=== PATIENT | male | born 1950 | race Caucasian/White ===

== ENCOUNTER 2018-05-07 08:09 | Emergency (ER) | payer BC ==
[~2018-05-07] VITALS: Ht 180.3 cm; Wt 117.9 kg
[2018-05-07] MEDS ORDERED: LISINOPRIL40 MG PO (08:21)
[2018-05-07] MEDS ORDERED: NORCO 5-325 TA1 EACH PO (09:18)
[2018-05-07] MEDS ORDERED: ZOFRAN ODT4 MG PO (09:18)
[2018-05-07 09:29] VITALS: BP 153/82
== END 2018-05-07 09:29 | disposition home or self-care (01) ==
LOC: ER 08:09
DX: S00.03XA Contusion of scalp, initial encounter (principal); Z88.0 Allergy status to penicillin; W01.0XXA Fall on same level from slipping, tripping and stumbling without subsequent striking against object, initial encounter; Y93.89 Activity, other specified; Y92.89 Other specified places as the place of occurrence of the external cause; Y99.8 Other external cause status